=== PATIENT | male | born 1950 | race Caucasian/White ===

== ENCOUNTER 2023-03-02 11:21 | Day surgery (SDC) | payer MEDICARE, OTHER ==
[~2023-03-02] VITALS: Ht 165.1 cm; Wt 72.1 kg
[~2023-03-02 11:21] MED LIST: ASPI81TA26 PO; CYCLOPENTOLATE 1% OPHTH SOLN 2ML BTL OS SCH; FLUO40CA PO; HYDR-3490 PO; LEVO50TA5 PO; LIDOCAINE 3.5 % 1ML OPHTH TOPICAL GEL OU ONE; MECL-86 PO; NEOM1SUS13; OFLOXACIN 0.3 % (OCUFLOX) OPTH SOL 5ML OS ONE; PHENYLEPHRINE 10% OPHTH SOL 5ML OS PRN; PHENYLEPHRINE 2.5% OPHTH SOL 2ML OS SCH; POTA1TAB21 PO; POTA99CA2 PO; RA M500C PO; SIMV40TA20 PO; TAMS1CAP17 PO; TOPI25TA10 PO; TROPICAMIDE 1% OPHTH SOLN 15ML OS SCH; VITA500C24 PO; VITATAB64 PO
[2023-03-02] MEDS ORDERED: MIDAZOLAM INJ 2MG/2ML VIAL As Ordered ONE (12:49)
[2023-03-02] MEDS ORDERED: fentaNYL 100 MCG/2 ML INJECTION As Ordered ONE (12:49)
[2023-03-02] MEDS: CEFUROXIME 1MG/0.1ML INTRACAMERAL INJ As Ordered ONE (13:30)
[2023-03-02] MEDS: BSS IRRIG/VANCO(10MG)/TOBRA(5MG)/EPINEPH(1:1000-0.5CC)500ML BAG-ORONLY IR ONE (13:30)
[2023-03-02] MEDS: LIDOCAINE 1% SDV 5ML VIAL As Ordered ONE (13:30)
[2023-03-02 13:43] VITALS: BP 111/68; TEMP 97.5; O2SAT 96
== END 2023-03-02 14:33 | disposition home or self-care (01) ==
LOC: M SDC 11:21
PROVIDERS: ATTEND Ophthalmology
DX: H25.12 Age-related nuclear cataract, left eye (principal); I10 Essential (primary) hypertension; E78.5 Hyperlipidemia, unspecified; N40.0 Benign prostatic hyperplasia without lower urinary tract symptoms; Z87.891 Personal history of nicotine dependence; Z79.82 Long term (current) use of aspirin; Z79.899 Other long term (current) drug therapy
CPT/HCPCS: 66984; J0697; J2250; J3010; V2632